=== PATIENT | female | born 1965 | race Caucasian/White ===

== ENCOUNTER 2018-09-29 17:02 | Emergency (ER) | payer OTHER ==
[~2018-09-29] VITALS: Ht 157.5 cm; Wt 77.1 kg
[~2018-09-29 17:02] MED LIST: CIPROFLOXACIN500 M1 PO; DARVOCET-N 1001 EACH PO; NOHOMEMEDICATIONS; ZOFRAN4 MG PO
[2018-09-29 19:25] LABS: CALCIUM 8.5 mg/dL (8.5-10.1); CREATININE 0.5 mg/dL (0.6-1.0); POTASSIUM 4.7 mmol/L (3.5-5.1)
[2018-09-29] MEDS ORDERED: IBUPROFEN 600600 M1 PO (21:54)
[2018-09-29] MEDS ORDERED: FLEXERIL PO (21:54)
[2018-09-29 22:13] VITALS: BP 176/62
== END 2018-09-29 22:15 | disposition home or self-care (01) ==
LOC: ER 17:02
PROVIDERS: Physician Assistant
DX: S16.1XXA Strain of muscle, fascia and tendon at neck level, initial encounter (principal); S70.02XA Contusion of left hip, initial encounter; Z88.5 Allergy status to narcotic agent; V47.0XXA Car driver injured in collision with fixed or stationary object in nontraffic accident, initial encounter; Y93.89 Activity, other specified; Y92.89 Other specified places as the place of occurrence of the external cause; Y99.8 Other external cause status